=== PATIENT | female | born 1950 | race Caucasian/White ===

== ENCOUNTER 2018-09-11 18:31 | Inpatient (IN) | payer MEDICARE, BC ==
[2018-09-11 21:43] VITALS: BMI 15.5
[2018-09-11] MEDS ORDERED: IPRATROPIUM-ALBUTEROL 3 ML NEB INHALATION PRN (22:28)
[2018-09-11] MEDS ORDERED: hydrALAZINE HCL 25 MG TAB PO STA (22:30)
[2018-09-11] MEDS: SODIUM CHLORIDE 0.9% 1,000 ML IV SCH (23:09)
[2018-09-11] MEDS: methylPREDNISolone SOD SUCCI 40 MG/ML 1 ML VIAL IV SCH (23:09)
[2018-09-11] MEDS: metroNIDAZOLE-NS PMX 500 MG in SALINE 1 100ML.BAG IVPB SCH (23:09)
[2018-09-11] MEDS: BUDESONIDE 0.5 MG/2 ML NEBU INHALATION SCH (23:13)
[2018-09-12 07:28] LABS: Basophils % (A) 0 %; Eosinophils % (A) 0 %; HCT 26.3 % (34.0-46.0); HGB 7.2 gm/dL (11.4-16.0); Hypochromasia Marked; Lymphocytes # (A) 0.4 k/uL (1.0-4.8); Lymphocytes % (A) 5 %; MCH 21.2 pg (25.0-35.0); MCHC 27.4 g/dL (31.0-37.0); MCV 77.5 fL (80.0-100.0); Mean Platelet Volume 6.5; Microcytosis Slight; Monocytes # (A) 0.1 k/uL (0-1.0); Monocytes % (A) 1 %; Neutrophils # (A) 7.3 k/uL (1.3-7.7); Neutrophils % (A) 93 %; Platelet Count 504 k/uL (150-450); Poikilocytosis Slight; RBC 3.39 m/uL (3.80-5.40); RDW 15.4 % (11.5-15.5); WBC 7.9 k/uL (3.8-10.6)
--- NOTE | 2018-09-12 07:32 | XR ---
EXAMINATION TYPE: XR chest 2V DATE OF EXAM: 09/12/2018 HISTORY: Shortness of Breath/COPD. REFERENCE: NONE. FINDINGS: The lungs are markedly overinflated but clear. Pleural space are clear. The heart is not en larged. IMPRESSION: COPD.
[2018-09-12 07:37] LABS: Anion Gap 8 mmol/L; Blood Urea Nitrogen 10 mg/dL (7-17); Calcium 8.6 mg/dL (8.4-10.2); Carbon Dioxide 31 mmol/L (22-30); Chloride 97 mmol/L (98-107); Glucose 135 mg/dL (74-99); Potassium 4.7 mmol/L (3.5-5.1); Sodium 136 mmol/L (137-145)
[2018-09-12] MEDS: IPRATROPIUM-ALBUTEROL 3 ML NEB INHALATION SCH ×4 (07:56→19:29)
[2018-09-12] MEDS: BUDESONIDE 0.5 MG/2 ML NEBU INHALATION SCH (07:58)
[2018-09-12] MEDS: LISINOPRIL 10 MG TAB PO SCH (08:53)
[2018-09-12] MEDS: methylPREDNISolone SOD SUCCI 40 MG/ML 1 ML VIAL IV SCH ×2 (08:54→17:57)
[2018-09-12] MEDS: FAMOTIDINE 20 MG TAB PO SCH ×2 (08:54→22:35)
[2018-09-12] MEDS: metroNIDAZOLE-NS PMX 500 MG in SALINE 1 100ML.BAG IVPB SCH ×2 (08:56→17:57)
--- NOTE | 2018-09-12 12:47 | P.HPIM ---
History of Present Illness H&P Date: 09/12/18 Chief Complaint: Abdominal pain and shortness of breath This is a 68-year-old female who was directly admitted from my office. The patient was seen in the office on 09/20/2018 and states that she has not been feeling well for several weeks. She was more short of breath and having abdominal pain. Upon examination the patient was found to have right lower quadrant abdominal pain. She states she cannot remember the last time she had a bowel movement. She is intermittently tachycardic at home. She is normally on 2 L nasal cannula [id number] and recently was increased to 3 L nasal cannula due to hypoxia while in the office. The patient has known COPD/emphysem a. The patient states that her appetite comes and goes. She denies vomiting and diarrhea. Again she is constipated and cannot remember the last time she had a bowel movement. She denies any blood in her stool at this time however her hemoglobin is trending down. She is agreeable to a blood transfusion. The patient has been afebrile. The patient did have a computed tomography scan at an outside facility on 09/11/2018: The CT showed some localized moderate full thickening in the lower ascending colon just above the ileocecal valve region. As the patient's symptoms are reported to be in the right lower quadrant, correlate for nonspecific mild colitis, direct visualization to exclude neoplasm if routine screening is not being performed, normal appendix, very redundant transverse and sigmoid colons. Review of Systems All systems: negative Past Medical History Past Medical History: COPD History of Any Multi-Drug Resistant Organisms: None Reported Past Surgical History: No Surgical Hx Reported Past Anesthesia/Blood Transfusion Reactions: No Reported Reaction Past Psychological History: No Psychological Hx Reported Smoking Status: Former smoker - Past Family History Mother Family Medical History: COPD Sister(s) Family Medical History: Cancer Additional Family Medical History / Comment(s): Lung Cancer Father Additional Family Medical History / Comment(s): [place] Medications and Allergies Home Medications Medication Instructions Recorded Confirmed Type Budesonide [Pulmicort] 0.5 mg INHALATION RT-BID 09/11/18 09/11/18 History Fosinopril [Monopril] 10 mg PO DAILY 09/11/18 09/11/18 History Ipratropium-Albuterol Nebulize 3 ml INHALATION RT-Q4H PRN 09/11/18 09/11/18 History [Duoneb 0.5 mg-3 mg/3 ml Soln] Allergies Allergy/AdvReac Type Severity Reaction Status Date / Time No Known Allergies Allergy Verified 09/11/18 22:13 Physical Exam Osteopathic Statement: *. No significant issues noted on an osteopathic structural exam other than those noted in the History and Physical/Consult. Vitals: Vital Signs Temp Pulse Pulse Resp BP Pulse Ox 09/12/18 11:10 96 09/12/18 11:00 88 09/12/18 08:07 92 09/12/18 07:59 96 09/12/18 07:00 97.5 F L 99 20 85/46 99 09/12/18 03:38 18 09/12/18 01:16 98.4 F 101 H 20 124/63 98 09/11/18 23:14 92 99 09/11/18 23:10 20 09/11/18 23:06 101 H 147/62 09/11/18 21:00 98.7 F 93 18 172/66 100 Intake and Output 09/11/18 09/12/18 09/12/18 22:59 06:59 14:59 Other: # Voids 1 Weight 36 kg Gen.: Patient is alert and oriented 3, no acute distress, cachexia Cardiovascular: Regular rate and rhythm, S1/S2 Lungs: Diminished breath sounds bilaterally Abdomen: Soft mildly tender in the right lower quadrant, positive bowel sounds, negative Sidhu's and McBurney's Extremities: No edema Results CBC & Chem 7: 09/12/18 06:52 09/12/18 06:52 Labs: Abnormal Lab Results - Last 24 Hours (Table) 09/12/18 09/12/18 Range/Units 06:52 06:52 RBC 3.39 L (3.80-5.40) m/uL Hgb 7.2 L (11.4-16.0) gm/dL Hct 26.3 L (34.0-46.0) % MCV 77.5 L (80.0-100.0) fL MCH 21.2 L (25.0-35.0) pg MCHC 27.4 L (31.0-37.0) g/dL Plt Count 504 H (150-450) k/uL Lymphocytes # 0.4 L (1.0-4.8) k/uL Sodium 136 L (137-145) mmol/L Chloride 97 L (98-107) mmol/L Carbon Dioxide 31 H (22-30) mmol/L Creatinine 0.31 L (0.52-1.04) mg/dL Glucose 135 H (74-99) mg/dL Chest x-ray: report reviewed, image reviewed CT scan - abdomen: report reviewed, image reviewed Thrombosis Risk Factor Assmnt - DVT/VTE Prophylaxis DVT/VTE Prophylaxis: Pharmacologic Prophylaxis ordered, Mechanical Prophylaxis ordered - Choose All That Apply Each Factor Represents 1 point: Abnormal pulmonary function (COPD) Other Risk Factors: Yes Each Risk Factor Represents 2 Points: Age 61-74 years Thrombosis Risk Factor Assessment Total Risk Factor Score: 3 Thrombosis Risk Factor Assessment Level: Moderate Risk Assessment and Plan Assessment: Acute on chronic hypoxic respiratory failure Acute exacerbation of COPD/emphysema Nonspecific colitis Possible neoplasm of the descending colon Acute on chronic anemia, possible GI bleed (microcytic) Hyponatremia, dehydration Elevated sedimentation rate on labs done at offices of unclear etiology Pulmonary cachexia and adult failure to thrive Sinus tachycardia Hypertension History of tobacco abuse O2 to maintain saturation greater than or equal to 90% Pulmicort and Perforomist Dujono nebs Singulair Steroid taper Incentive spirometry and pulmonary hygiene Sputum culture Antibiotics: Flagyl and Levaquin GI and DVT prophylaxis Transfuse 1 unit PRBC now and recheck H/H this evening Fecal occult blood Check CEA Consult nutrition Check iron, B12, folate levels GI and DVT prophylaxis Code status is DNR
[2018-09-12] MEDS ORDERED: NA PHOS,M-B/NA PHOS,DI-BA 133 ML ENEMA RECTAL ONE (13:00)
[2018-09-12] MEDS ORDERED: LEVOFLOXACIN 500 MG TAB PO SCH (14:00)
[2018-09-12] MEDS: LACTULOSE 20 GM/30 ML CUP PO SCH ×2 (17:26→22:35)
[2018-09-12] MEDS: SODIUM CHLORIDE 0.9% 1,000 ML IV SCH (17:58)
[2018-09-12] MEDS: FORMOTEROL FUMARATE 20 MCG/2 ML NEBU INHALATION SCH (19:29)
[2018-09-12] MEDS: BUDESONIDE 1 MG/2 ML NEBU INHALATION SCH (19:29)
[2018-09-12 20:09] LABS: Anisocytosis Slight; HCT 31.5 % (34.0-46.0); Hypochromasia Marked; MCH 22.8 pg (25.0-35.0); MCHC 29.4 g/dL (31.0-37.0); MCV 77.6 fL (80.0-100.0); Mean Platelet Volume 6.6; Microcytosis Slight; Platelet Count 599 k/uL (150-450); Poikilocytosis Moderate; RBC 4.07 m/uL (3.80-5.40); RDW 16.6 % (11.5-15.5)
[2018-09-12 20:20] LABS: HGB 9.3 gm/dL (11.4-16.0)
[2018-09-12] MEDS ORDERED: MONTELUKAST 10 MG TAB PO SCH (21:00)
[2018-09-12 23:30] LABS: Iron Saturation 28.64 (12.00-45.00)
[2018-09-13] MEDS: metroNIDAZOLE-NS PMX 500 MG in SALINE 1 100ML.BAG IVPB SCH ×2 (00:33→08:25)
[2018-09-13] MEDS: methylPREDNISolone SOD SUCCI 40 MG/ML 1 ML VIAL IV SCH ×2 (00:34→08:26)
[2018-09-13] MEDS: SODIUM CHLORIDE 0.9% 1,000 ML IV SCH (02:26)
[2018-09-13] MEDS: IPRATROPIUM-ALBUTEROL 3 ML NEB INHALATION SCH ×2 (07:49→11:07)
[2018-09-13] MEDS: BUDESONIDE 1 MG/2 ML NEBU INHALATION SCH (07:49)
[2018-09-13] MEDS: FORMOTEROL FUMARATE 20 MCG/2 ML NEBU INHALATION SCH (07:49)
[2018-09-13 08:02] VITALS: BP 131/68; RESP 16; TEMP 97.7
[2018-09-13] MEDS: LACTULOSE 20 GM/30 ML CUP PO SCH (08:20)
[2018-09-13] MEDS: FAMOTIDINE 20 MG TAB PO SCH (08:24)
[2018-09-13] MEDS: LISINOPRIL 10 MG TAB PO SCH (08:24)
[2018-09-13 10:54] LABS: Anisocytosis Slight; HCT 31.2 % (34.0-46.0); HGB 8.8 gm/dL (11.4-16.0); Hypochromasia Marked; MCH 21.8 pg (25.0-35.0); MCHC 28.1 g/dL (31.0-37.0); MCV 77.6 fL (80.0-100.0); Mean Platelet Volume 6.7; Microcytosis Slight; Platelet Count 573 k/uL (150-450); Poikilocytosis Moderate; RBC 4.02 m/uL (3.80-5.40); RDW 16.6 % (11.5-15.5); WBC 21.8 k/uL (3.8-10.6)
[2018-09-13 11:13] LABS: ALT 26 U/L (9-52); AST 21 U/L (14-36); Albumin 3.1 g/dL (3.5-5.0); Alkaline Phosphatase 74 U/L (38-126); Anion Gap 6 mmol/L; Blood Urea Nitrogen 14 mg/dL (7-17); Calcium 8.8 mg/dL (8.4-10.2); Carbon Dioxide 31 mmol/L (22-30); Chloride 101 mmol/L (98-107); Glucose 201 mg/dL (74-99); Potassium 3.6 mmol/L (3.5-5.1); Sodium 138 mmol/L (137-145); Total Bilirubin 0.5 mg/dL (0.2-1.3); Total Protein 5.8 g/dL (6.3-8.2)
[2018-09-13 11:15] VITALS: PULSE 100
--- NOTE | 2018-09-13 12:11 | P.DS ---
Providers Date of admission: 09/11/18 20:30 Expected date of discharge: 09/13/18 Attending physician: Su Jackson Primary care physician: Su Jackson [facility] Course: This is a 68-year-old female who was directly admitted from my office. The patient was seen in the office on 09/20/2018 and states that she has not been feeling well for several weeks. She was more short of breath and having abdominal pain. Upon examination the patient was found to have right lower quadrant abdominal pain. She states she cannot remember the last time she had a bowel movement. She is intermittently tachycardic at home. She is normally on 2 L nasal cannula [id number] and recently was increased to 3 L nasal cannula due to hypoxia while in the office. The patient has known COPD/emphysema. The patient states that her appetite comes and goes. She denies vomiting and diarrhea. Again she is constipated and cannot remember the last time she had a bowel movement. She denies any blood in her stool at this time however her hemoglobin is trending down. She is agreeable to a blood transfusion. The patient has been afebrile. The patient did have a computed tomography scan at an outside facility on 09/11/2018: The CT showed some localized moderate full thickening in the lower ascending colon just above the ileocecal valve region. As the patient's symptoms are reported to be in the right lower quadrant, correlate for nonspecific mild colitis, direct visualization to exclude neoplasm if routine screening is not being performed, normal appendix, very redundant transverse and sigmoid colons. The patient was found to be fecal occult blood positive. She declines any intervention at this time and states that she would like to go home and follow up outpatient. Her hemoglobin increased to 9.3 and is 8.8 on discharge. She denies hematemesis, melena, hematochezia. She states she is feeling better overall. Her breathing and her abdomen are improved. She did have some water stool overnight. Patient will be discharged to home where she lives with her son who is a physicians nutrition assistant. They are agreeable to close outpatient follow up and repeat CBC on Friday. Plan for possible PET scan. CEA is on the high end of normal Patient Condition at Discharge: Fair Plan - Discharge Summary Discharge Rx Participant: Yes New Discharge Prescriptions: New Lactulose [Cephulac] 30 gm PO BID ml Ipratropium-Albuterol Nebulize [Duoneb 0.5 mg-3 mg/3 ml Soln] 3 ml INHALATION RT-Q4H PRN ampul.neb PRN Reason: Shortness Of Breath Or Wheezing metroNIDAZOLE [Flagyl] 500 mg PO TID 10 Days #30 tab Levofloxacin [Levaquin] 500 mg PO Q24H #5 tab Formoterol Fumarate [Perforomist] 20 mcg INHALATION RT-BID 30 Days #60 nebu predniSONE 10 mg PO DIRECTED #42 tab Continue Fosinopril [Monopril] 10 mg PO DAILY Ipratropium-Albuterol Nebulize [Duoneb 0.5 mg-3 mg/3 ml Soln] 3 ml INHALATION RT-Q4H PRN PRN Reason: Shortness Of Breath Or Wheezing Budesonide [Pulmicort] 0.5 mg INHALATION RT-BID Discharge Medication List Budesonide [Pulmicort] 0.5 mg INHALATION RT-BID 09/11/18 [History] Fosinopril [Monopril] 10 mg PO DAILY 09/11/18 [History] Ipratropium-Albuterol Nebulize [Duoneb 0.5 mg-3 mg/3 ml Soln] 3 ml INHALATION RT-Q4H PRN 09/11/18 [History] Formoterol Fumarate [Perforomist] 20 mcg INHALATION RT-BID 30 Days #60 nebu 09/13/18 [Rx] Ipratropium-Albuterol Nebulize [Duoneb 0.5 mg-3 mg/3 ml Soln] 3 ml INHALATION RT-Q4H PRN ampul.neb 09/13/18 [Rx] Lactulose [Cephulac] 30 gm PO BID ml 09/13/18 [Rx] Levofloxacin [Levaquin] 500 mg PO Q24H #5 tab 09/13/18 [Rx] metroNIDAZOLE [Flagyl] 500 mg PO TID 10 Days #30 tab 09/13/18 [Rx] predniSONE 10 mg PO DIRECTED #42 tab 09/13/18 [Rx] Follow up Appointment(s)/Referral(s): Su Jackson DO [Primary Care Provider] - 3 Days Ambulatory/Diagnostic Orders: Complete Blood Count w/diff [LAB.AMB] Time Frame: 3 Days, Location: None Selected Patient Instructions/Handouts: Infectious Colitis (GEN) Activity/Diet/Wound Care/Special Instructions: High calorie, high protein diet Discharge Disposition: HOME SELF-CARE
== END 2018-09-13 13:15 | disposition home or self-care (01) | DRG 391 ==
LOC: 4SSUR 20:30 → UNDOADMIN 20:30
PROVIDERS: ADMIT Internal Medicine; ATTEND Internal Medicine
PROC: 30233N1 Transfusion of Nonautologous Red Blood Cells into Peripheral Vein, Percutaneous Approach (ICD-10-PCS; principal; 2018-09-12)
DX: K52.9 Noninfective gastroenteritis and colitis, unspecified (principal); J96.21 Acute and chronic respiratory failure with hypoxia; J44.1 Chronic obstructive pulmonary disease with (acute) exacerbation; R64 Cachexia; Z68.1 Body mass index [BMI] 19.9 or less, adult; D64.9 Anemia, unspecified; I10 Essential (primary) hypertension; K59.00 Constipation, unspecified; R62.7 Adult failure to thrive; Z66 Do not resuscitate; Z80.1 Family history of malignant neoplasm of trachea, bronchus and lung; Z82.5 Family history of asthma and other chronic lower respiratory diseases; Z87.891 Personal history of nicotine dependence; Z79.51 Long term (current) use of inhaled steroids; Z79.899 Other long term (current) drug therapy
CPT/HCPCS: 71046; 80048; 80053; 82272; 82378; 82607; 82746; 83540; 83550; 85025; 85027; 86850; 86900; 86901; 86920; 94640; 94760

== ENCOUNTER → 2018-09-29 | Outpatient (CLI) | payer MEDICARE, BC ==
[2018-09-29 08:19] LABS: Blood Urea Nitrogen 13 mg/dL (7-17)
--- NOTE | 2018-09-29 11:16 | CT ---
EXAMINATION TYPE: CT abdomen pelvis w con DATE OF EXAM: 09/29/2018 HISTORY: Right lower quadrant pain CT DLP: 460mGycm Automated Exposure Control for Dose Reduction was Utilized. CONTRAST: CT scan of the abdomen and pelvis is performed with rectal and with IV Contrast, patient injected wit h 75 mL of Isovue 300. COMPARISON: None. FINDINGS: LUNG BASES: Bibasilar emphysematous change with mild left basilar linear scarring is present. LIVER/GB: Dependent density consistent with gallbladder sludge and/or small stones is present. PANCREAS: No significant abnormality is seen. SPLEEN: No significant abnormality is seen. ADRENALS: No significant abnormality is seen. KIDNEYS: No significant abnormality is seen. BOWEL: Rectal tube is in place. There is retrograde opacification to mid transverse colon level only. Some redundancy of sigmoid colon is present. No suspicious small or large bowel dilatation. Evaluati on suboptimal due to patient having little intra-abdominal fat and incomplete opacification of colon. Appendix felt within normal limits in the right pelvis as there is low-lying cecum seen best near ax ial image 61 and 62. UTERUS/ADNEXA: Retroverted uterus is seen. LYMPH NODES: No greater than 1cm abdominal or pelvic lymph nodes are appreciated. OSSEOUS STRUCTURES: Mild to moderate disc space narrowing L3-L4 level is present. OTHER: Severe calcified plaque of the infrarenal aorta extends into iliac branch vessels. IMPRESSION: No CT evidence for acute appendicitis. Slightly suboptimal study without significant acut e finding identified to account for patient's clinical symptoms.
[2018-09-29 12:21] LABS: Anisocytosis Slight; Basophils % (A) 0 %; Eosinophils # (A) 0.3 k/uL (0-0.7); Eosinophils % (A) 3 %; HCT 37.4 % (34.0-46.0); HGB 10.4 gm/dL (11.4-16.0); Hypochromasia Marked; Lymphocytes # (A) 0.9 k/uL (1.0-4.8); Lymphocytes % (A) 9 %; MCH 22.4 pg (25.0-35.0); MCHC 27.8 g/dL (31.0-37.0); MCV 80.6 fL (80.0-100.0); Microcytosis Slight; Monocytes # (A) 0.6 k/uL (0-1.0); Monocytes % (A) 6 %; Neutrophils # (A) 7.5 k/uL (1.3-7.7); Neutrophils % (A) 79 %; Platelet Count 349 k/uL (150-450); Poikilocytosis Slight; RBC 4.65 m/uL (3.80-5.40); RDW 18.2 % (11.5-15.5); WBC 9.4 k/uL (3.8-10.6)
== END | disposition home or self-care (01) ==
LOC: RADCTMAIN 07:44
PROVIDERS: ATTEND Internal Medicine
DX: R10.9 Unspecified abdominal pain (principal); R10.2 Pelvic and perineal pain
CPT/HCPCS: 82565; 84520; 85025; 74177; 36415; Q9967 ×2